=== PATIENT | female | born 1985 | race Caucasian/White ===

== ENCOUNTER 2017-01-18 16:54 | Emergency (ER) | payer OTHER ==
[~2017-01-18] VITALS: Ht 167.6 cm; Wt 81.6 kg
[2017-01-18 16:55] VITALS: BP 145/79
--- NOTE | 2017-01-18 17:24 | ED.ADGEN ---
Adult General Chief Complaint Chief Complaint Right foot/ankle injury (ADARSH STEELE DO) HPI HPI Patient is a 21-year-old female presents with right foot/ankle injury. 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 Causing patient to fall. Patient denies any other injury. Denies knee pain, right leg pain. Tenderness swelling noted over right lateral ankle and foot. Patient drove herself to the emergency department. Patient is currently on control skipped menstrual periods.[] (ADARSH STEELE DO) Review of Systems Review of Systems ROS as per HPI. All other ROS are negative. (ADARSH STEELE DO) Current Medications Current Medications Current Medications Medications (Trade) Dose Ordered Sig/Aniceto Start Time Stop Time Status Last Admin Dose Admin Ibuprofen (Motrin) 600 mg 1X ONCE 01/18/17 18:00 01/18/17 18:01 DC 01/18/17 17:57 600 MG (CLAUDETTE QUINTANILLA MD) Allergies Allergies Allergies Coded Allergies Type Severity Reaction Last Updated Verified No Known Drug Allergies 01/18/17 No (CLAUDETTE QUINTANILLA MD) Physical Exam Physical Exam Constitutional: Well developed, well nourished, no acute distress, non-toxic appearance. [] HENT: Normocephalic, atraumatic, bilateral external ears normal, oropharynx moist, no oral exudates, nose normal. [] Eyes: PERRLA, EOMI, conjunctiva normal, no discharge. [] Extremities: Right lower extremity, gross deformity, right ankle/foot, right lateral malleoli/dorsal mid foot soft tissue swelling, tenderness, pain with palpation. Right knee/tib-fib, no bony tenderness or deformity.[] Neurologic: Alert and oriented X 3, right lower extremity, no motor weakness or loss of sensation.. [] Psychologic: Affect normal, judgement normal, mood normal. [] (ADARSH STEELE DO) Current Patient Data Vital Signs Vital Signs Date Time Temp Pulse Resp B/P (MAP) Pulse Ox O2 Delivery O2 Flow Rate FiO2 01/18/17 16:55 97.0 75 20 99 Room Air (CLAUDETTE QUINTANILLA MD) EKG EKG [] (ADARSH STEELE DO) Radiology/Procedures Radiology/Procedures [X-ray right ankle/right foot: No obvious displaced fracture per preliminary read] (ADARSH STEELE DO) Radiology/Procedures [address] [address] IMAGING REPORT Signed PATIENT: ARACELIS PHAN ACCOUNT: [id number] : 1985 LOCATION: ER AGE: 31 SEX: F EXAM STATUS: PRE ER ORD. PHYSICIAN: ADARSH STEELE DO REASON: R foot/ankle trauma PROCEDURE: CT LOWER EXTREMITY WO RIGHT CT right lower extremity without contrast dated 01/18/2017. No comparison available. Clinical indication: Foot and ankle pain after injury. TECHNIQUE: Contiguous axial imaging of the right foot and ankle performed with thin cut coronal and sagittal reconstruction. One or more of the following individualized dose reduction techniques were utilized for this examination: 1. Automated exposure control 2. Adjustment of the mA and/or kV according to patient size 3. Use of iterative reconstruction technique. FINDINGS: Bony alignment is anatomic. No displaced fracture. Distal tibia and fibular intact. Talar dome is intact. No apparent ankle joint effusion or loose body. Bones of the midfoot are intact. No destructive process or periostitis. 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 Visualized soft tissue structures are unremarkable. Ligaments and tendons are not well evaluated. There is mild soft tissue edema within the subcutaneous tissues of the dorsum of the midfoot, nonspecific. IMPRESSION: 1. No acute bony abnormality. 2. Nonspecific soft tissue swelling within the dorsal subcutaneous tissues at the midfoot. 3. 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 No aggressive features. 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 (See chart for details) [Right foot crash injuries soft tissue swelling. Initial imaging studies do not show evidence of fracture. CT pending. Care endorsed to oncoming [facility] at 1800 pending results.] (ADARSH STEELE DO) Course & Med Decision Making Patient presents with a crush injury to the right foot. Plain films did not demonstrate any signs of an occult injury foreign body or monocytes of soft tissue swelling. CT scan was completed to ensure that no subtle fracture was missed. At this point CT scan is normal with no evidence of fracture. Patient be given a work but because this is a Workmen's Compensation issue where she is been injured at work I advised her to follow up with her primary care doctor to begin that paperwork in process. In that time I will provide her a note for work or she does not have to be in the next few days until she makes arrangement of for follow-up. (CLAUDETTE QUINTANILLA MD) Final Impression Final Impression [1. right foot iojury] Problems: (ADARSH STEELE DO) Final Impression Crush injury to the right foot. Patient discharged home PCP follow-up given oral medications and referral to orthopedic surgery. Problems: (CLAUDETTE QUINTANILLA MD) Dragon Disclaimer Dragon Disclaimer This electronic medical record was generated, in whole or in part, using a voice recognition dictation system. (ADARSH STEELE DO) ADARSH STEELE DO Jan 18, 2017 17:24 CLAUDETTE QUINTANILLA MD Jan 18, 2017 19:03
[2017-01-18] MEDS ORDERED: IBUPROFEN 600 MG TABLET. PO ONE (18:00)
--- NOTE | 2017-01-18 18:36 | RAD ---
CT right lower extremity without contrast dated 01/18/2017. No comparison available. Clinical indication: Foot and ankle pain after injury. TECHNIQUE: Contiguous axial imaging of the right foot and ankle performed with thin cut coronal and sagittal reconstruction. One or more of the following individualized dose reduction techniques were utilized for this examination: 1. Automated exposure control 2. Adjustment of the mA and/or kV according to patient size 3. Use of iterative reconstruction technique. FINDINGS: Bony alignment is anatomic. No displaced fracture. Distal tibia and fibular intact. Talar dome is intact. No apparent ankle joint effusion or loose body. Bones of the midfoot are intact. No destructive process or periostitis. 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 Visualized soft tissue structures are unremarkable. Ligaments and tendons are not well evaluated. There is mild soft tissue edema within the subcutaneous tissues of the dorsum of the midfoot, nonspecific. IMPRESSION: 1. No acute bony abnormality. 2. Nonspecific soft tissue swelling within the dorsal subcutaneous tissues at the midfoot. 3. 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 No aggressive features. Electronically signed by: Raheem Thao MD (01/18/2017 6:32 PM) [facility]
[2017-01-18] MEDS ORDERED: NAPR500T PO (19:06)
[2017-01-18] MEDS ORDERED: HYDR-2758 PO (19:06)
--- NOTE | 2017-01-19 08:21 | RAD ---
Exam: Right ankle and right foot radiograph 01/18/2017 at 1725 hours Indication: Right ankle pain status post trauma Comparison: None available Technique: 3 views of the right frontal and 3 views of the right ankle are provided. Findings: Right ankle: There is focal circumscribed cortical thickening involving the medial aspect of the distal tibia suggestive of a ossified nonossifying fibroma. There is no acute fracture or dislocation. Tibial plafond and talar dome are intact. Ankle mortise is congruent. No joint space narrowing. No soft tissue swelling. No osseous erosion or soft tissue gas. Bone mineralization is within normal limits. Left foot: There is no acute fracture or dislocation. There is posterior calcaneal enthesophyte. There is soft tissue swelling along the dorsal aspect of the midfoot. No osseous erosions or soft tissue gas. Small osteophyte is noted involving the base of the distal phalanx of the first digit. Impression: 1. No acute fracture or dislocation involving the ankle and foot. 2. 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 3. Posterior calcaneal enthesophyte is noted.
== END 2017-01-18 19:15 | disposition home or self-care (01) ==
LOC: ER 16:54
DX: S97.81XA Crushing injury of right foot, initial encounter (principal); W20.8XXA Other cause of strike by thrown, projected or falling object, initial encounter; Y93.89 Activity, other specified; Y99.8 Other external cause status; Y92.89 Other specified places as the place of occurrence of the external cause
CPT/HCPCS: 73610; 73630; 73700; 99284

== ENCOUNTER 2017-05-30 10:01 | Emergency (ER) | payer OTHER ==
[~2017-05-30 10:01] MED LIST: HYDR-2758 PO; NAPR-683 PO
[2017-05-30] MEDS ORDERED: IV NORMAL SALINE 1,000ML 1,000 ML IV ONE (10:30)
[2017-05-30] MEDS ORDERED: LIDO:MAALOX 1:1 20 ML SINGLE DOSE PO ONE (10:30)
[2017-05-30 10:43] LABS: BASO % 1 % (0-3); EOS # 0.1 x10^3/uL (0.0-0.7); EOS % 1 % (0-3); HEMATOCRIT 40.4 % (36.0-47.0); HEMOGLOBIN 13.8 g/dL (12.0-15.5); LYMPH # 0.8 x10^3/uL (1.0-4.8); LYMPH % 7 % (24-48); MEAN CORPUSCULAR HEMOGLOBIN 28 pg (25-35); MEAN CORPUSCULAR HGB CONC 34 g/dL (31-37); MEAN CORPUSCULAR VOLUME 82 fL (79-100); MONO # 0.6 x10^3/uL (0.0-1.1); MONO % 5 % (0-9); NEUT # 9.3 x10^3uL (1.8-7.7); NEUT % 86 % (31-73); PLATELET COUNT 293 x10^3/uL (140-400); RED BLOOD COUNT 4.92 x10^6/uL (3.50-5.40); RED CELL DISTRIBUTION WIDTH 13.5 % (11.5-14.5); WHITE BLOOD COUNT 10.8 x10^3/uL (4.0-11.0)
[2017-05-30] MEDS ORDERED: ONDANSETRON PF 4 MG/2 ML VIAL. IV ONE (10:50)
[2017-05-30 10:56] LABS: ALBUMIN 3.2 g/dL (3.4-5.0); ALBUMIN/GLOBULIN RATIO 0.9 (1.0-1.7); CALCIUM 8.4 mg/dL (8.5-10.1); CREATININE 0.9 mg/dL (0.6-1.0); TOTAL BILIRUBIN 0.6 mg/dL (0.2-1.0); TOTAL PROTEIN 6.9 g/dL (6.4-8.2)
[2017-05-30] MEDS ORDERED: OMEP20TA63 PO (11:05)
[2017-05-30] MEDS ORDERED: ONDA4TAB10 SL (11:05)
--- NOTE | 2017-05-30 11:05 | PHYS DOC ---
Past History Past Medical History: No Pertinent History Past Surgical History: No Surgical History Alcohol Use: None Drug Use: None Adult General Chief Complaint Chief Complaint: ABDOMINAL PAIN HPI HPI Patient is a 31-year-old female who presents here today complaining of midepigastric abdominal pain times several months. Patient reports she has been seen by her primary care physician for this and they have empirically treat her for H. pylori. She reports she still has intermittent episodes of pain and is supposed to have a follow-up referral with a GI specialist however her primary care physician "dropped the ball with this ". Patient presents today complaining of worsening epigastric discomfort this morning. Patient reports decreased by mouth intake with nausea and bilious vomiting 4 today. Patient has any diarrhea. Patient has a dysuria frequency urgency. Patient has any chest pain or shortness of breath. Patient has any cough cold rhinorrhea. Patient denies any melena or bright red blood per rectum. She denies any hematochezia. Review of Systems Review of Systems Review of systems: Constitutional: Denies fever or chills Eyes: Denies change in visual acuity, redness, or eye pain HENT: Denies nasal congestion or sore throat Respiratory: Denies cough or shortness of breath All other systems were reviewed and found to be within normal limits, except as documented in this note. Physical exam: Constitutional: Well developed, well nourished, no acute distress, non-toxic appearance. HENT: Normocephalic, atraumatic, bilateral external ears normal, nose normal. Eyes: PERRLA, EOMI, conjunctiva normal, no discharge. Neck: Normal range of motion, no tenderness, supple, no stridor. Cardiovascular: Heart rate regular rhythm, Lungs & Thorax: Bilateral breath sounds clear to auscultation Abdomen: No abdominal distention. Skin: Warm, dry, no erythema, no rash. Back: Normal spinal curvature Extremities: No tenderness, no cyanosis, no clubbing, ROM intact, no edema. Neurologic: Alert and oriented X 3, normal motor function, normal sensory function, no focal deficits noted. Psychologic: Affect normal, judgement normal, mood normal. Patient's ER physical exam was most remarkable: Midepigastric tenderness to palpation. No rebound or guarding. No psoas or obturator signs. No Milton sign. No tenderness at McBurney's point. Labs reviewed: Assessment and plan: 1. 31-year-old female with midepigastric pain likely secondary to gastritis. Patient hasn't had nausea vomiting is bilious material which was secondary to a viral illness as well. Patient has been given IV fluids here in the ED as well as IV Zofran will be discharged home with Zofran and instructions to follow-up with her primary care physician to see him for outpatient evaluation. Current Medications Current Medications Current Medications Medications (Trade) Dose Ordered Sig/Aniceto Start Time Stop Time Status Last Admin Dose Admin Multi-Ingredient Mouthwash/Gargle (Gi Cocktail) 20 ml 1X ONCE 05/30/17 10:30 05/30/17 10:31 DC 05/30/17 10:32 20 ML Ondansetron HCl (Zofran) 4 mg 1X ONCE 05/30/17 10:50 05/30/17 10:51 DC 05/30/17 10:34 4 MG Sodium Chloride 1,000 ml @ 1,000 mls/hr 1X ONCE 05/30/17 10:30 05/30/17 11:29 05/30/17 10:32 1,000 MLS/HR Allergies Allergies Allergies Coded Allergies Type Severity Reaction Last Updated Verified No Known Drug Allergies 01/18/17 No Physical Exam Physical Exam Constitutional: Well developed, well nourished, no acute distress, non-toxic appearance. [] HENT: Normocephalic, atraumatic, bilateral external ears normal, oropharynx moist, no oral exudates, nose normal. [] Eyes: PERRLA, EOMI, conjunctiva normal, no discharge. [] Neck: Normal range of motion, no tenderness, supple, no stridor. [] Cardiovascular:Heart rate regular rhythm, no murmur [] Lungs & Thorax: Bilateral breath sounds clear to auscultation [] Abdomen: Bowel sounds normal, soft, no tenderness, no masses, no pulsatile masses. [] Skin: Warm, dry, no erythema, no rash. [] Back: No tenderness, no CVA tenderness. [] Extremities: No tenderness, no cyanosis, no clubbing, ROM intact, no edema. [] Neurologic: Alert and oriented X 3, normal motor function, normal sensory function, no focal deficits noted. [] Psychologic: Affect normal, judgement normal, mood normal. [] Current Patient Data Lab Results Laboratory Tests Test 1/25/18 10:27 White Blood Count 10.8 x10^3/uL (4.0-11.0) Red Blood Count 4.92 x10^6/uL (3.50-5.40) Hemoglobin 13.8 g/dL (12.0-15.5) Hematocrit 40.4 % (36.0-47.0) Mean Corpuscular Volume 82 fL (79-100) Mean Corpuscular Hemoglobin 28 pg (25-35) Mean Corpuscular Hemoglobin Concent 34 g/dL (31-37) Red Cell Distribution Width 13.5 % (11.5-14.5) Platelet Count 293 x10^3/uL (140-400) Neutrophils (%) (Auto) 86 % (31-73) H Lymphocytes (%) (Auto) 7 % (24-48) L Monocytes (%) (Auto) 5 % (0-9) Eosinophils (%) (Auto) 1 % (0-3) Basophils (%) (Auto) 1 % (0-3) Neutrophils # (Auto) 9.3 x10^3uL (1.8-7.7) H Lymphocytes # (Auto) 0.8 x10^3/uL (1.0-4.8) L Monocytes # (Auto) 0.6 x10^3/uL (0.0-1.1) Eosinophils # (Auto) 0.1 x10^3/uL (0.0-0.7) Basophils # (Auto) 0.0 x10^3/uL (0.0-0.2) Sodium Level 140 mmol/L (136-145) Potassium Level 4.0 mmol/L (3.5-5.1) Chloride Level 105 mmol/L (98-107) Carbon Dioxide Level 25 mmol/L (21-32) Anion Gap 10 (6-14) Blood Urea Nitrogen 11 mg/dL (7-20) Creatinine 0.9 mg/dL (0.6-1.0) Estimated GFR (Cockcroft-Gault) 73.0 BUN/Creatinine Ratio 12 (6-20) Glucose Level 94 mg/dL (70-99) Calcium Level 8.4 mg/dL (8.5-10.1) L Total Bilirubin 0.6 mg/dL (0.2-1.0) Aspartate Amino Transferase (AST) 17 U/L (15-37) Alanine Aminotransferase (ALT) 17 U/L (14-59) Alkaline Phosphatase 60 U/L (46-116) Total Protein 6.9 g/dL (6.4-8.2) Albumin 3.2 g/dL (3.4-5.0) L Albumin/Globulin Ratio 0.9 (1.0-1.7) L Lipase 126 U/L (73-393) EKG EKG [] Radiology/Procedures Radiology/Procedures [] Course & Med Decision Making Course & Med Decision Making Pertinent Labs and Imaging studies reviewed. (See chart for details) [] Dragon Disclaimer Dragon Disclaimer This electronic medical record was generated, in whole or in part, using a voice recognition dictation system. 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
[2017-05-30 11:36] VITALS: BP 139/71
== END 2017-05-30 11:36 | disposition home or self-care (01) ==
LOC: ER 10:01
DX: K29.70 Gastritis, unspecified, without bleeding (principal); R30.0 Dysuria; R35.0 Frequency of micturition
CPT/HCPCS: 36415; 80053; 83690; 85025; 96361; 96374; 99284; J2405; J7030